=== PATIENT | female | born 1955 | race Caucasian/White ===

== ENCOUNTER 2019-11-21 08:33 | Outpatient (CLI) | payer BC, SELFPAY ==
--- NOTE | 2019-11-21 | USCV_ITS ---
Addie Garza Age: 64 Gender: F : 1955 Exam Date: 11/21/2019 08:57 Ordering Phys: Bry Valencia MD Technologist: Carin Man [place] [facility] [place]: stroke, syncope, tia BP: 128 / 78 HR: 79 Rhythm: Sinus Technical Quality: Adequate MEASUREMENTS (Male / Female) Normal Values 2D ECHO LV Diastolic Diameter PLAX 3.5 cm 4.2 - 5.9 / 3.9 - 5.3 cm LV Systolic Diameter PLAX 2.3 cm LV Chamber Size 3.3 cm IVS Diastolic Thickness 0.8 cm 0.6 - 1.0 / 0.6 - 0.9 cm IVS Systolic Thickness 1.3 cm LVPW Diastolic Thickness 1.0 cm 0.6 - 1.0 / 0.6 - 0.9 cm LVPW Systolic Thickness 1.3 cm RV Chamber Size 2.5 cm LVOT Diameter 2.0 cm LV Ejection Fraction 2D Teich 65.2 % LV Ejection Fraction MOD 2C 71.3 % LV Ejection Fraction 2C AL 72.2 % LA Diameter 0.0 cm LA Width 2.9 cm LA Height 3.3 cm RA Width 2.8 cm RA Height 3.4 cm Aorta at Sinotubular Diameter 2.8 cm M-MODE LV Diastolic Diameter MM 4.3 cm 4.2 - 5.9 / 3.9 - 5.3 cm LV Systolic Diameter MM 2.4 cm LV Ejection Fraction MM Teich 76.5 % IVS Diastolic Thickness MM 0.8 cm 0.6 - 1.0 / 0.6 - 0.9 cm IVS Systolic Thickness MM 1.3 cm LVPW Diastolic Thickness MM 1.0 cm 0.6 - 1.0 / 0.6 - 0.9 cm LVPW Systolic Thickness MM 1.4 cm RV Diastolic Diameter MM 1.2 cm Aortic Annulus Diameter 2.7 cm LA Ao Ratio MM 0.0 MV E Point Septal Separation 0.1 cm DOPPLER AV Peak Velocity 145.0 cm/s LVOT Peak Velocity 105.0 cm/s AV Area Cont Eq vti 2.5 cm squared AV Area Cont Eq pk 2.3 cm squared MV Area PHT 5.5 cm squared Mitral E to A Ratio 1.3 MV E' Velocity 12.0 cm/s Mitral E to MV E' Ratio 12.9 Mitral E to LV E' Lateral Ratio 13.8 Mitral E to LV E' Septal Ratio 12.1 TR Peak Velocity 126.6 cm/s TR Peak Gradient 6.4 mmHg TR Mean Velocity 77.1 cm/s TR Mean Gradient 2.6 mmHg TR Velocity Time Integral 27.0 cm TV Peak E Velocity 48.0 cm/s Right Atrial Pressure 3.0 mmHg Pulmonary Artery Systolic Pressu 9.4 mmHg PV Peak Velocity 62.0 cm/s RV Acceleration Time 0.1 s RV Ejection Time 0.3 s RV AcT/ET 0.4 FINDINGS Left Ventricle Normal left ventricular size and wall thickness. LV systolic function is normal with EF 60 to 65%. No regional wall motion abnormalities are seen. Normal left ventricular wall thickness. Normal diastolic filling pattern. Right Ventricle The right ventricle is normal in size and function. Right Atrium The right atrium is normal in size. Left Atrium The left atrium is normal in size. Mitral Valve Structurally normal mitral valve without significant stenosis or prolapse. There is trace mitral regurgitation. Aortic Valve Structurally normal aortic valve without significant sclerosis or stenosis. There is no aortic regurgitation. Tricuspid Valve Structurally normal tricuspid valve without significant stenosis or regurgitation. Insufficient TR jet to calculate RVSP. RA pressure is 0 to 5 mmHg. Pulmonic Valve Structurally normal pulmonic valve without significant stenosis. There is no pulmonic regurgitation. Pericardium Normal pericardium without effusion. Aorta Normal ascending aorta dimension. CONCLUSIONS LV systolic function is normal with EF of 60 to 65%. Normal diastolic function. No comparison studies are available. Micah Guerrero MD (Electronically Signed) Final Date: 21 November 2019 13:28 S
--- NOTE | 2019-11-21 08:59 | CT_ITS ---
WS: [id number] CT ANGIOGRAM CEREBRAL AND CAROTID ARTERIES NONCONTRAST CT HEAD HISTORY: ACUTE ISCHEMIC STROKE/VERTIGO/ACUTE/SUBACUTE INFARCT TECHNIQUE: CT angiogram is performed of the carotid and cerebral arteries. During arterial injection imaging is obtained from the skull vertex to the aortic arch in 1.25 mm imaging. Coronal and sagittal reformats are submitted. Additional multi planar reformats of the carotid and cerebral arteries are submitted, MIP imaging also reviewed. NASCET criteria utilized. All CT scans at [facility] use at least one of these dose optimization techniques: automated exposure control; mA and/or kV ad justment per patient size (includes targeted exams where dose is matched to clinical indication); or iterative reconstruction. CONTRAST: Omnipaque 300; 95 mL IV. DLP: 2682.94 mGy.cm COMPARISON: None available. Noncontrast CT head is first performed. There is no acute intracranial hemorrhage or edema. Mild atro phy. Mild chronic microvascular ischemic changes. No prior infarct. Carotid Angiogram: Right carotid: Common carotid artery: Arises normally from the innominate artery. No significant plaque or stenosis. Internal carotid artery: No plaque or stenosis. External carotid artery: Patent. Left carotid: Common carotid artery: Arises normally from the aorta. No significant plaque or stenosis. Internal carotid artery: No plaque or stenosis. External carotid artery: Patent. Right vertebral artery: Unremarkable. Left vertebral artery: Unremarkable. Arises normally from the subclavian artery. Subclavian arteries: No stenosis or significant abnormality. Upper thorax: Normal. Thyroid gland: High density nodule with central cystic areas in the RIGHT thyroid measures 10 mm. Fro m post on a background of tiny cystic nodules and goiter. Osseous structures: Mild anterior wedging of T7. CEREBRAL ANGIOGRAM: Intracranial vertebral arteries: Normal with no significant atherosclerosis. Basilar artery: No significant stenosis or occlusion. No aneurysm. Intracranial Internal carotid arteries: Demonstrates no significant stenosis or plaque. Middle cerebral arteries: Normal. Anterior cerebral arteries and ACOM: Normal. Posterior cerebral arteries and PCOM's: Normal. Dural venous sinuses are normally enhancing. Mastoid air cells: Normal. Paranasal sinuses: Normal. Calvarium: Craniotomy defects bilaterally towards the vertex of the parietal lobes. Additional elio h ole defects over the posterior anterior frontal lobes bilaterally. CT/CT angio headneck* [id number] IMPRESSION: 1. Normal carotid arteries. 2. Unremarkable [place] of [place]. 3. Enlarged heterogeneous thyroid with a RIGHT thyroid nodule. Recommend follo w-up thyroid ultrasound. 4. 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
[2019-11-21 09:51] LABS: Blood Urea Nitrogen 9 mg/dL (8-23); Glomerular Filtration Rate 124.6 mL/min (90-130)
[2019-11-21] MEDS: iohexol 350 mg/mL 100 mL Btl IV (10:06)
[2019-11-22] MEDS: iohexol 350 mg/mL 100 mL Btl IV (10:15)
== END 2019-11-21 08:34 | disposition home or self-care (01) ==
LOC: US 08:34
PROVIDERS: Visit Provider Student in an Organized Health Care Education/Training Program
DX: I63.9 Cerebral infarction, unspecified (principal); R42 Dizziness and giddiness; E04.9 Nontoxic goiter, unspecified; E04.1 Nontoxic single thyroid nodule
CPT/HCPCS: 36415; 70496; 70498; 82565; 84520; 93306

== ENCOUNTER 2019-12-31 12:09 | Outpatient (CLI) | payer BC, SELFPAY ==
[2019-12-31 12:56] LABS: Basophils # 0.1 10^3/uL (0.0-0.1); Basophils % 0.8 %; Eosinophils # 0.1 10^3/uL (0.0-0.8); Eosinophils % 1.6 %; Hematocrit 47.8 % (37.0-47.0); Hemoglobin 16.1 g/dL (11.5-15.3); Lymphocytes # 1.5 10^3/uL (0.8-4.8); Lymphocytes % 24.5 %; Mean Corpuscular HGB Conc 33.7 g/dL (30.0-36.0); Mean Corpuscular Hemoglobin 30.8 pg (28.0-34.0); Mean Corpuscular Volume 91.6 fL (81-99); Mean Platelet Volume 10.1 fL (7.4-10.4); Monocytes # 0.5 10^3/uL (0.2-0.9); Monocytes % 7.4 %; Neutrophils # 4.06 10^3/uL (1.8-7.7); Neutrophils % 65.5 %; Nucleated Red Blood Cells % 0 %; Platelet Count 212 10^3/cmm (130-400); Red Blood Count 5.22 10^6/uL (4.1-5.3); Red Cell Distribution Width 11.9 % (12.1-15.1); White Blood Count 6.2 10^3/uL (4.0-10.0)
== END 2019-12-31 12:10 | disposition home or self-care (01) ==
LOC: LAB 12:23
PROVIDERS: Visit Provider Student in an Organized Health Care Education/Training Program
DX: I63.9 Cerebral infarction, unspecified (principal)
CPT/HCPCS: 36415; 85025

== ENCOUNTER 2020-08-06 09:10 | Outpatient (CLI) | payer BC, SELFPAY ==
--- NOTE | 2020-08-06 09:30 | MR_ITS ---
WS: [id number] MRI NECK WITH CONTRAST TECHNIQUE: Noncontrast axial T1, axial T2 FSE fat sat, coronal T2 fat sat, coronal T1, coronal T1 fat sat, sagittal T2 fat sat, plus contrast enhanced coronal, sagittal, and axial T1 fat sat images obta ined. CLINICAL INFORMATION: OTHER DISEASES OF TONGUE COMPARISON: None. FINDINGS: Tongue base is normal in appearance. Normal posterior nasopharynx. Submandibular glands are normal. N ormal parotid glands. No evidence of supraglottic or glottic mass. Normal vocal cords. Normal subglot tic airway. Small right thyroid nodule measuring 6.7 mm. Mastoid air cells well aerated. Paranasal si nuses are well aerated. Normal posterior fossa. Normal vascular flow voids at the skull base. Proximal 7th and 8th cranial ne rves appear normal. Normal cerebellum. No cervical lymphadenopathy. Straightening of the normal cervical lordosis. Mild disc bulging C4-C5 a nd C5-C6. No abnormal gadolinium enhancement. Normal optic chiasm and pituitary infundibulum. MR/MR orbit face neck wo/w* [id number] IMPRESSION: 1. Normal posterior nasopharynx. Normal tongue base. 2. Salivary glands are normal. 3. No evidence of supraglottic or glottic mass. 4. No cervical lymphadenopathy. 5. Right thyroid nodule measuring 6.7 mm.
== END 2020-08-06 09:11 | disposition home or self-care (01) ==
LOC: RADSHAW 09:18
PROVIDERS: PCP Family Medicine; Visit Provider Specialist
DX: K14.8 Other diseases of tongue (principal); E04.1 Nontoxic single thyroid nodule
CPT/HCPCS: 70543; A9579